=== PATIENT | female | born 1985 | race Caucasian/White ===

== ENCOUNTER 2021-10-04 12:41 | Observation (INO) ==
[2021-10-04] MEDS ORDERED: Isovue-370 500 ML BOTTLE IVP ONE (14:14)
[2021-10-04] MEDS ORDERED: diazePAM 10 MG/2 ML SYRINGE IVP ONE (14:14)
[2021-10-04] MEDS ORDERED: 0.9 % Sodium Chloride 1,000 ML IVC ONE (14:14)
[2021-10-04 14:20] LABS: Bacteria,Urine Few per hpf (None-Few); Bilirubin,Urine Moderate (Negative); Blood,Urine Small (Negative); Clarity,Urine Turbid (Clear); Color,Urine Dark-Brown (Yellow); Glucose,Urine (UA) Normal (Normal); Ketones,Urine Negative (Negative); Leukocyte Esterase,Urine Negative (Negative); Mucus,Urine Few per lpf (None-Few); Nitrite,Urine Positive (Negative); Protein,Urine 30 mg/dL (Neg-Trace); Specific Gravity,Urine 1.017 (1.010-1.025); Squamous Epithelial Cell,Urine Few per hpf (None-Few); Urobilinogen,Urine >=8.0 mg/dL (Normal)
[2021-10-04 14:30] LABS: Basophils # 0.1 K/mcL (0.0-0.2); Basophils % 0.6 %; Eosinophils # 0.1 K/mcL (0.0-0.6); Eosinophils % 1.1 %; Hemoglobin 16.6 g/dL (11.5-15.4); Immature Granulocytes % 0.4 % (0-4); Lymphocytes # 2.8 K/mcL (0.6-4.6); Lymphocytes % 27.3 %; Mean Corpuscular HGB Conc 33.9 g/dL (31.6-35.5); Mean Corpuscular Hemoglobin 30.1 pg (28.0-33.3); Mean Corpuscular Volume 88.8 fL (83.0-100.0); Mean Platelet Volume 10.6 fL (9.4-12.4); Monocytes # 0.8 K/mcL (0.0-1.3); Monocytes % 7.7 %; Neutrophils # 6.3 K/mcL (1.6-8.9); Platelet Count 226 K/mcL (140-400); Red Blood Count 5.52 M/mcL (3.82-4.97); Red Cell Distribution Width 12.3 % (11.5-14.5); Segmented Neutrophils % 62.9 %; White Blood Count 10.1 K/mcL (4.3-11.1)
[2021-10-04 15:02] LABS: Alanine Aminotransferase 12 Units/L (7-52); Albumin/Globulin Ratio 1.7 (1.1-2.2); Alkaline Phosphatase 82 Units/L (34-104); Aspartate Amino Transferase 12 Units/L (13-39); BUN/Creatinine Ratio 20 (6-26); Bilirubin,Direct 0.1 mg/dL (0.0-0.2); Bilirubin,Indirect 0.4 mg/dL (0.0-1.0); Bilirubin,Total 0.5 mg/dL (0.3-1.0); Blood Urea Nitrogen 12 mg/dL (6-20); Calcium 9.2 mg/dL (8.6-10.3); Carbon Dioxide 24 mEq/L (23-29); Chloride 104 mEq/L (98-107); Globulin 2.4 g/dL (2.4-3.5); Glucose 99 mg/dL (70-105); Lipase 28 Units/L (11-82); Osmolality,Calculated 286 (280-300); Sodium 138 mEq/L (136-145); Total Protein 6.4 g/dL (6.4-8.9); eGFR For African Americans > 60 (> 60); eGFR For Non-African Americans > 60 (> 60)
[2021-10-04] MEDS ORDERED: cefTRIAXone 1,000 MG in Water for inj. (sterile) 10 ML IVP ONE (16:40)
[2021-10-04] MEDS ORDERED: Naloxone 0.4 MG/ML INJ IVP PRN (19:22)
[2021-10-04] MEDS ORDERED: Melatonin 3 MG TABLET PO PRN (19:22)
[2021-10-04] MEDS ORDERED: Ondansetron ODT 4 MG TAB.RAPDIS SL PRN (19:22)
[2021-10-04] MEDS ORDERED: 0.9 % Sodium Chloride 1,000 ML IVC SCH (20:30)
[2021-10-04] MEDS: Ketorolac 30 MG/ML VIAL IVP PRN (21:06)
[2021-10-04] MEDS ORDERED: Nicotine 7 MG PATCH.TD24 TD PRN (21:38)
[2021-10-05] MEDS: rifAMPin 150 MG CAPSULE PO SCH ×2 (00:52→11:48)
[2021-10-05] MEDS: 0.9 % Sodium Chloride 1,000 ML IVC SCH ×3 (01:14→13:03)
[2021-10-05 01:42] LABS: Hematocrit 46.3 % (35.3-44.9); Hemoglobin 15.7 g/dL (11.5-15.4); Mean Corpuscular HGB Conc 33.9 g/dL (31.6-35.5); Mean Corpuscular Hemoglobin 30.3 pg (28.0-33.3); Mean Corpuscular Volume 89.4 fL (83.0-100.0); Mean Platelet Volume 11.1 fL (9.4-12.4); Platelet Count 209 K/mcL (140-400); Red Blood Count 5.18 M/mcL (3.82-4.97); Red Cell Distribution Width 12.4 % (11.5-14.5); White Blood Count 10.2 K/mcL (4.3-11.1)
[2021-10-05 02:01] LABS: BUN/Creatinine Ratio 16 (6-26); Blood Urea Nitrogen 10 mg/dL (6-20); Calcium 8.7 mg/dL (8.6-10.3); Carbon Dioxide 26 mEq/L (23-29); Chloride 109 mEq/L (98-107); Glucose 123 mg/dL (70-105); Osmolality,Calculated 288 (280-300); Potassium 3.8 mEq/L (3.5-5.1); Sodium 139 mEq/L (136-145); eGFR For African Americans > 60 (> 60); eGFR For Non-African Americans > 60 (> 60)
[2021-10-05] MEDS ORDERED: *HR* Midazolam HCl 2 MG/2 ML VIAL ONE (07:12)
[2021-10-05] MEDS ORDERED: *HR* Propofol 200 MG/20 ML VIAL IVP ONE ×2 (07:12→09:27)
[2021-10-05] MEDS ORDERED: *HR* FentaNYL (PF) 100 MCG/2 ML VIAL ONE ×2 (07:12→09:27)
[2021-10-05] MEDS ORDERED: Lidocaine -MPF 2% 2 ML VIAL ONE (07:23)
[2021-10-05] MEDS ORDERED: Ondansetron 4 MG/2 ML VIAL ONE (07:23)
[2021-10-05] MEDS ORDERED: *HR* Succinylcholine 200 MG/10 ML VIAL IVP ONE (07:23)
[2021-10-05] MEDS ORDERED: Isovue-300 50ML VIAL ONE (07:28)
[2021-10-05] MEDS ORDERED: *HR* HYDROmorphone PF 0.5 MG/0.5 ML SYRINGE IVP PRN (07:42)
[2021-10-05] MEDS ORDERED: cefTRIAXone 1,000 MG in 0.9 % Sodium Chloride 10 ML IVP SCH (09:00)
[2021-10-05] MEDS ORDERED: EPHEDrine 50 MG/ML VIAL ONE (09:31)
[2021-10-05] MEDS ORDERED: *HR* OxyCODONE/APAP 5/325 TABLET PO PRN (10:47)
[2021-10-05] MEDS ORDERED: ALPRAZolam 1 MG TABLET PO PRN (10:47)
[2021-10-05] MEDS ORDERED: Ringers Solution, Lactated 1,000 ML ONE (11:17)
[2021-10-05 15:44] VITALS: BP 128/82; PULSE 97; TEMP 97.6; O2SAT 94
[2021-10-05] MEDS: Ketorolac 30 MG/ML VIAL IVP PRN (17:39)
== END 2021-10-05 17:49 | disposition home or self-care (01) ==
LOC: EMEROOARM 12:41 → 3ANU 12:41 → SUATTDRO 19:15 → 3ANU 19:37
PROVIDERS: ADMIT Internal Medicine; ATTEND Internal Medicine